=== PATIENT | male | born 1965 | race Caucasian/White ===

== ENCOUNTER 2022-04-03 17:17 | Inpatient (IN) | payer OTHER ==
[~2022-04-03] VITALS: Ht 170.2 cm; Wt 96.2 kg
[2022-04-03] MEDS: METOPROLOL TARTRATE 5MG/5ML VIAL IV SCH ×2 (18:05→19:35)
[2022-04-03 18:30] LABS: HEMATOCRIT. 42.7 % (42.0-52.0); HEMOGLOBIN. 14.7 g/dL (14.0-18.0); MEAN CORPUSCULAR VOLUME 93.1 fL (80.0-94.0); PLATELET 173 x1000/uL (130-400); RED BLOOD CELL COUNT 4.58 mill/uL (4.7-6.1); RED CELL DISTRIBUTION WIDTH 13.6 % (11.6-14.6)
[2022-04-03 18:35] LABS: CHLORIDE 102 mEq/L (98-107)
[2022-04-03] MEDS ORDERED: PIPERACILLIN/TAZ 3.375G PREMIX 50 ML IV NR (19:00)
[2022-04-03 19:52] LABS: PLATELET ESTIMATE NORMAL
[2022-04-03] MEDS ORDERED: VANCOMYCIN 1GM PMX (XELLIA) 200 ML IV NR (20:00)
[2022-04-03] MEDS ORDERED: ENOXAPARIN 40MG/0.4ML SYR SUBCUT SCH (21:00)
[2022-04-03] MEDS ORDERED: CLONIDINE 0.1MG TABLET PO PRN (22:00)
[2022-04-03] MEDS ORDERED: DIPHENHYDRAMINE 50MG/ML VIAL IV PRN (22:00)
[2022-04-03] MEDS ORDERED: ONDANSETRON HCL 4MG/2ML INJ IV PRN (22:00)
[2022-04-03] MEDS: SODIUM CHLORIDE 0.9% INJ 3ML FLUSH IVF SCH (22:00)
[2022-04-03] MEDS ORDERED: VANCOMYCIN 1G PREMIX 200 ML IV SCH (22:00)
[2022-04-03] MEDS ORDERED: HYDROCODONE/ACETAMINOPHEN 5/325MG TABLET PO PRN (22:00)
[2022-04-03] MEDS ORDERED: MAGNESIUM/ALUMINUM HYDROXIDE/SIMETHICONE 30ML UDC PO PRN (22:00)
[2022-04-03] MEDS ORDERED: ZOLPIDEM TARTRATE 5MG TABLET PO PRN (22:00)
[2022-04-03] MEDS ORDERED: ACETAMINOPHEN 325MG TABLET PO PRN (22:00)
[2022-04-03] MEDS ORDERED: ENOXAPARIN 40MG/0.4ML SYR SUBCUT NR (22:30)
[2022-04-03] MEDS ORDERED: VANCOMYCIN 1500MG in DEXTROSE 5% WATER 250ML IV NR (23:00)
[2022-04-04 04:50] VITALS: BP 105/67
[2022-04-04] MEDS: SODIUM CHLORIDE 0.9% INJ 3ML FLUSH IVF SCH ×3 (06:10→20:31)
[2022-04-04] MEDS ORDERED: NALOXONE HCL 0.4MG/ML VIAL IV PRN (07:45)
[2022-04-04 08:00] VITALS: BP 102/67
[2022-04-04] MEDS ORDERED: ENOXAPARIN 100MG/ML SYR SUBCUT SCH (09:00)
[2022-04-04] MEDS: METOPROLOL TARTRATE 25MG TABLET PO SCH ×2 (09:00→20:32)
[2022-04-04] MEDS: VANCOMYCIN 1GM PMX (XELLIA) 200 ML IV SCH ×2 (09:32→20:31)
[2022-04-04] MEDS ORDERED: ENOXAPARIN 80MG/0.8ML SYR SUBCUT SCH (10:00)
[2022-04-04 12:00] VITALS: BP 116/75
[2022-04-04 13:11] LABS: BASOPHILS % 0.2 % (0.0-2.0); EOSINOPHILS % 1.2 % (0.0-5.0); HEMATOCRIT. 39.4 % (42.0-52.0); HEMOGLOBIN. 13.6 g/dL (14.0-18.0); LYMPHOCYTES % 13.8 % (20.0-50.0); MEAN CORPUSCULAR HEMOGLOBIN 32.2 pg (28.0-32.0); MEAN CORPUSCULAR VOLUME 93.2 fL (80.0-94.0); MEAN PLATELET VOLUME 7.8 fl (7.4-10.4); MONOCYTES % 9.8 % (2.0-8.0); PLATELET 148 x1000/uL (130-400); RED BLOOD CELL COUNT 4.22 mill/uL (4.7-6.1); RED CELL DISTRIBUTION WIDTH 13.3 % (11.6-14.6)
[2022-04-04 13:24] LABS: PROTHROMBIN TIME 10.9 sec (9.6-11.0)
[2022-04-04 13:27] LABS: CHLORIDE 108 mEq/L (98-107)
[2022-04-04 13:59] LABS: PHOSPHORUS 2.1 mg/dL (2.5-4.9)
[2022-04-04 16:01] VITALS: BP 110/74
[2022-04-04] MEDS ORDERED: IBUPROFEN 600MG TABLET PO PRN (18:45)
[2022-04-04 20:00] VITALS: BP 137/83
[2022-04-04] MEDS: ENOXAPARIN 100MG/ML SYR SUBCUT SCH (20:31)
[2022-04-04] MEDS: ACETAMINOPHEN 325MG TABLET PO PRN (20:32)
[2022-04-05] VITALS: BP 116/78
[2022-04-05 04:00] VITALS: BP 138/97
[2022-04-05] MEDS: SODIUM CHLORIDE 0.9% INJ 3ML FLUSH IVF SCH ×3 (04:49→20:43)
[2022-04-05 08:00] VITALS: BP 102/52
[2022-04-05 08:01] LABS: BASOPHILS % 0.4 % (0.0-2.0); EOSINOPHILS % 1.8 % (0.0-5.0); HEMATOCRIT. 38.7 % (42.0-52.0); HEMOGLOBIN. 13.3 g/dL (14.0-18.0); LYMPHOCYTES % 21.1 % (20.0-50.0); MEAN CORPUSCULAR HEMOGLOBIN 32.4 pg (28.0-32.0); MEAN CORPUSCULAR VOLUME 94.2 fL (80.0-94.0); MONOCYTES % 8.2 % (2.0-8.0); NEUTROPHILS % 68.5 % (40.0-76.0); PLATELET 149 x1000/uL (130-400); RED BLOOD CELL COUNT 4.11 mill/uL (4.7-6.1); RED CELL DISTRIBUTION WIDTH 13.6 % (11.6-14.6)
[2022-04-05 08:24] LABS: CHLORIDE 106 mEq/L (98-107)
[2022-04-05] MEDS: METOPROLOL TARTRATE 25MG TABLET PO SCH ×2 (08:28→20:34)
[2022-04-05] MEDS: VANCOMYCIN 1GM PMX (XELLIA) 200 ML IV SCH ×2 (08:29→20:34)
[2022-04-05] MEDS: ENOXAPARIN 100MG/ML SYR SUBCUT SCH ×2 (08:29→20:34)
[2022-04-05 12:00] VITALS: BP 114/73
[2022-04-05 16:00] VITALS: BP 118/75
[2022-04-05 20:00] VITALS: BP 125/86
[2022-04-06] VITALS: BP 113/70
[2022-04-06 04:00] VITALS: BP 122/71
[2022-04-06] MEDS: SODIUM CHLORIDE 0.9% INJ 3ML FLUSH IVF SCH ×3 (04:43→21:46)
[2022-04-06 07:46] VITALS: BP 103/71
[2022-04-06] MEDS: VANCOMYCIN 1GM PMX (XELLIA) 200 ML IV SCH (08:23)
[2022-04-06] MEDS: METOPROLOL TARTRATE 25MG TABLET PO SCH ×2 (08:23→21:45)
[2022-04-06] MEDS: ENOXAPARIN 100MG/ML SYR SUBCUT SCH (08:23)
[2022-04-06 12:17] VITALS: BP 90/50
[2022-04-06 15:22] VITALS: BP 106/75
[2022-04-06 20:00] VITALS: BP 148/86
[2022-04-06] MEDS: SULFAMETHOXAZOLE/TRIMETHOPRIM 800/160MG TABLET PO SCH (21:45)
[2022-04-07] VITALS: BP 133/78
[2022-04-07 04:00] VITALS: BP 115/79
[2022-04-07] MEDS: SODIUM CHLORIDE 0.9% INJ 3ML FLUSH IVF SCH ×3 (05:33→21:28)
[2022-04-07 07:54] VITALS: BP 109/73
[2022-04-07] MEDS: SULFAMETHOXAZOLE/TRIMETHOPRIM 800/160MG TABLET PO SCH ×2 (08:09→21:27)
[2022-04-07] MEDS: APIXABAN 5 MG TABLET PO SCH ×2 (08:09→16:03)
[2022-04-07] MEDS: METOPROLOL TARTRATE 25MG TABLET PO SCH ×2 (08:09→21:27)
[2022-04-07 11:43] VITALS: BP 117/80
[2022-04-07 15:23] VITALS: BP 140/83
[2022-04-07 20:00] VITALS: BP 122/86
[2022-04-07] MEDS: ACETAMINOPHEN 325MG TABLET PO PRN (21:28)
[2022-04-08] VITALS (7 sets, daily range): BP systolic 95–141; BP diastolic 55–91
[2022-04-08] MEDS: SODIUM CHLORIDE 0.9% INJ 3ML FLUSH IVF SCH ×3 (06:11→21:06)
[2022-04-08] MEDS: SULFAMETHOXAZOLE/TRIMETHOPRIM 800/160MG TABLET PO SCH (08:20)
[2022-04-08] MEDS: METOPROLOL TARTRATE 25MG TABLET PO SCH ×2 (08:21→20:38)
[2022-04-08] MEDS: APIXABAN 5 MG TABLET PO SCH ×2 (08:21→15:55)
[2022-04-09 04:00] VITALS: BP 103/58
[2022-04-09] MEDS: SODIUM CHLORIDE 0.9% INJ 3ML FLUSH IVF SCH (06:22)
[2022-04-09 07:23] VITALS: BP 120/72
[2022-04-09] MEDS: METOPROLOL TARTRATE 25MG TABLET PO SCH (08:22)
[2022-04-09] MEDS: APIXABAN 5 MG TABLET PO SCH (08:22)
[2022-04-09 10:18] VITALS: BP 120/72
[2022-04-09] MEDS ORDERED: APIX5TAB PO (11:32)
[2022-04-09] MEDS ORDERED: LOPHC2 GT (11:32)
[2022-04-09] MEDS ORDERED: SULF1TAB48 MT (11:33)
[2022-04-09 12:19] VITALS: BP 110/55
== END 2022-04-09 13:00 | disposition home or self-care (01) | DRG 872 ==
LOC: ER 17:17 → MICUSO 23:42 → 8WST 04-04 04:30
PROVIDERS: ADMIT Internal Medicine; ATTEND Internal Medicine
DX: A41.9 Sepsis, unspecified organism (principal); L03.116 Cellulitis of left lower limb; I48.20 Chronic atrial fibrillation, unspecified; I11.9 Hypertensive heart disease without heart failure; I25.10 Atherosclerotic heart disease of native coronary artery without angina pectoris; F17.200 Nicotine dependence, unspecified, uncomplicated; Z59.00 Homelessness unspecified; Z79.01 Long term (current) use of anticoagulants; Z95.5 Presence of coronary angioplasty implant and graft
CPT/HCPCS: 36415; 71045; 73610; 80048; 80053; 80202; 83605; 83735; 83880; 84100; 84484; 84550; 85025; 85379; 85651; 86140; 93005; 93970; 97116; 97162; 99291; J1650; J2543; J3370; J3490; J7060

== ENCOUNTER 2022-05-02 05:17 | Emergency (ER) | payer OTHER ==
[~2022-05-02] VITALS: Ht 182.9 cm; Wt 98.1 kg
[~2022-05-02 05:17] MED LIST: APIX5TAB PO; LOPHC2 GT; SULF1TAB48 MT
[2022-05-02 05:19] VITALS: BP 104/67
[2022-05-02 06:47] LABS: BASOPHILS % 0.6 % (0.0-2.0); CHLORIDE 105 mEq/L (98-107); EOSINOPHILS % 1.6 % (0.0-5.0); HEMATOCRIT. 44.5 % (42.0-52.0); HEMOGLOBIN. 15.1 g/dL (14.0-18.0); LYMPHOCYTES % 24.3 % (20.0-50.0); MEAN CORPUSCULAR HEMOGLOBIN 32.5 pg (28.0-32.0); MEAN CORPUSCULAR VOLUME 95.6 fL (80.0-94.0); MEAN PLATELET VOLUME 7.3 fl (7.4-10.4); MONOCYTES % 8.5 % (2.0-8.0); PLATELET 200 x1000/uL (130-400); RED BLOOD CELL COUNT 4.65 mill/uL (4.7-6.1); RED CELL DISTRIBUTION WIDTH 13.8 % (11.6-14.6)
[2022-05-02 06:56] LABS: ETHANOL BLOOD < 10 mg/dL
[2022-05-02 07:02] LABS: *AMPHETAMINES SCREEN URINE NEGATIVE (NEGATIVE); *BARBITURATES SCREEN URINE NEGATIVE (NEGATIVE); *BENZODIAZEPINES SCREEN URINE NEGATIVE (NEGATIVE); *COCAINE SCREEN URINE NEGATIVE (NEGATIVE); CANNABINOID URINE SCREEN NEGATIVE (NEGATIVE); METHADONE URINE SCREEN NEGATIVE (NEGATIVE); OPIATES URINE SCREEN NEGATIVE (NEGATIVE); PHENCYCLIDINE URINE SCREEN NEGATIVE (NEGATIVE)
== END 2022-05-02 10:37 | disposition home or self-care (01) ==
LOC: ER 05:36
DX: F32.A Depression, unspecified (principal); I10 Essential (primary) hypertension; I48.91 Unspecified atrial fibrillation; Z98.890 Other specified postprocedural states; Z79.01 Long term (current) use of anticoagulants
CPT/HCPCS: 36415; 71045; 80053; 80305; 80320; 83880; 84484; 85025; 93005; 99285; G0480

== ENCOUNTER 2022-05-02 22:54 | Emergency (ER) | payer OTHER ==
[~2022-05-02] VITALS: Ht 180.3 cm; Wt 91.0 kg
[2022-05-03] MEDS ORDERED: NITROGLYCERIN 0.4MG TABLET SL SL PRN
[2022-05-03 00:32] LABS: CHLORIDE 101 mEq/L (98-107)
[2022-05-03 00:59] LABS: BASOPHILS % 0.3 % (0.0-2.0); EOSINOPHILS % 1.9 % (0.0-5.0); HEMATOCRIT. 40.7 % (42.0-52.0); HEMOGLOBIN. 14.2 g/dL (14.0-18.0); LYMPHOCYTES % 29.7 % (20.0-50.0); MEAN CORPUSCULAR HEMOGLOBIN 32.5 pg (28.0-32.0); MEAN CORPUSCULAR VOLUME 93.2 fL (80.0-94.0); MEAN PLATELET VOLUME 7.2 fl (7.4-10.4); MONOCYTES % 9.8 % (2.0-8.0); NEUTROPHILS % 58.3 % (40.0-76.0); PLATELET 233 x1000/uL (130-400); RED BLOOD CELL COUNT 4.37 mill/uL (4.7-6.1); RED CELL DISTRIBUTION WIDTH 13.7 % (11.6-14.6)
[2022-05-03 03:31] VITALS: BP 94/54
== END 2022-05-03 03:31 | disposition home or self-care (01) ==
LOC: ER 22:54
DX: R07.9 Chest pain, unspecified (principal); I10 Essential (primary) hypertension; Z95.820 Peripheral vascular angioplasty status with implants and grafts
CPT/HCPCS: 36415; 71045; 80053; 83880; 84484; 85025; 85379; 99284